=== PATIENT | female | born 1945 ===

== ENCOUNTER 2021-05-01 11:41 | Emergency (ER) | payer MEDICARE, BC ==
--- NOTE | 2021-05-01 11:54 | EDM.PDOC ---
ED HPI GENERAL MEDICAL PROBLEM - General Chief Complaint: Skin Complaint Stated Complaint: failed treatment of scabies Time Seen by Provider: 05/01/21 11:54 Source of Information: Reports: Patient, Old Records, RN, RN Notes Reviewed History Limitations: Reports: No Limitations - History of Present Illness INITIAL COMMENTS - FREE TEXT/NARRATIVE: Pt presents to ER with c/o persistent scabies infection. She has completed 2 courses of generic Elimite and has processed all of her laundry, bedding, etc. 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 Denies any other complaint. Duration: Week(s): (4-5), Recurring Location: Reports: Chest, Abdomen, Upper Extremity, Left Quality: Reports: Other (Itches) Severity: Severe Improves with: Reports: None Worsens with: Reports: None Associated Symptoms: Reports: No Other Symptoms - Related Data Allergies Allergy/AdvReac Type Severity Reaction Status Date / Time codeine Allergy Hives Verified 05/01/21 11:55 Home Meds: Home Meds lisinopriL [Lisinopril] 20 mg PO DAILY 05/01/21 [History] Past Medical History Cardiovascular History: Reports: Hypertension Social & Family History - Living Situation & Occupation Occupation: Retired ED ROS GENERAL - Review of Systems Review Of Systems: Comprehensive ROS is negative, except as noted in HPI. ED EXAM, SKIN/RASH Exam: See Below Exam Limited By: No Limitations General Appearance: Alert, WD/WN, No Apparent Distress Throat/Mouth: Normal Voice, No Airway Compromise Respiratory/Chest: No Respiratory Distress Extremities: Normal Inspection Neurological: Alert, Oriented, No Motor/Sensory Deficits Psychiatric: Normal Mood Skin: Warm, Dry, Rash Location, Skin: Abdomen, Upper Extremity, Left Characteristics: Patchy Associated features: Crusting, Rough Course - Vital Signs Last Recorded V/S: Last Vital Signs Temp 97.1 F 05/01/21 11:56 Pulse 66 05/01/21 11:56 Resp 16 05/01/21 11:56 BP 133/69 05/01/21 11:56 Pulse Ox 100 05/01/21 11:56 Departure - Departure Time of Disposition: 12:11 Disposition: Home, Self-Care 01 Condition: Good Clinical Impression: Scabies - Discharge Information *PRESCRIPTION DRUG MONITORING PROGRAM REVIEWED*: Not Applicable *COPY OF PRESCRIPTION DRUG MONITORING REPORT IN PATIENT ALEYDA: Not Applicable Instructions: Scabies, Adult Forms: ED Department Discharge Additional Instructions: Rx: Elimite Cream 5% Rx: Ivermectin 3mg Use Elimite treatment first. If needed follow with one time Ivermectin treatme nt. Follow up in clinic if needed. Sepsis Event Note (ED) - Focused Exam Vital Signs: Vital Signs Temp Pulse Resp BP Pulse Ox 05/01/21 11:56 97.1 F 66 16 133/69 100
== END 2021-05-01 13:00 | disposition home or self-care (01) ==
LOC: DL.ED 11:41
DX: B86 Scabies (principal); I10 Essential (primary) hypertension; Z88.5 Allergy status to narcotic agent; Z79.899 Other long term (current) drug therapy
CPT/HCPCS: 99283